=== PATIENT | male | born 1960 ===

== ENCOUNTER 2018-04-08 13:56 | Emergency (ER) | payer BC ==
[2018-04-08 14:07] VITALS: TEMP 97.5; O2SAT 98
[2018-04-08] MEDS ORDERED: Lidocaine Hydrochloride 5 ML INJ ONE (14:42)
[2018-04-08] MEDS ORDERED: Lidocaine 2% MPF (5 ml) Inj ONE (15:21)
[2018-04-08] MEDS ORDERED: Tdap Vaccine 0.5 ml Vial (10-64 yrs) IM ONE ×2 (16:31→16:39)
--- NOTE | 2018-04-08 16:31 | C.PDOC ---
History Of Present Illness 57 year old male, otherwise well, comes in to ED after dropping a weight plate on his 5th digit of the right hand, sustaining a crush injury. He presents with pain that is 8/10, nonradiating, throbbing in nature, bleeding, and macerated tissue. Patient has no other complaints. Time Seen by Provider: 04/08/18 14:33 Chief Complaint (Nursing): Abnormal Skin Integrity History Per: Patient History/Exam Limitations: no limitations Onset/Duration Of Symptoms: Hrs Current Symptoms Are (Timing): Still Present Past Medical History Reviewed: Historical Data, Nursing Documentation, Vital Signs Vital Signs: Last Vital Signs Temp 97.5 F L 04/08/18 14:05 Pulse 80 04/08/18 14:05 Resp 18 04/08/18 14:05 BP 121/73 04/08/18 14:05 Pulse Ox 98 04/08/18 14:05 Family History: States: No Known Family Hx - Social History Hx Alcohol Use: No Hx Substance Use: No Review Of Systems Except As Marked, All Systems Reviewed And Found Negative. Constitutional: Negative for: Fever, Chills Gastrointestinal: Negative for: Nausea, Vomiting Musculoskeletal: Positive for: Other (Right 5th digit laceration) Neurological: Negative for: Headache Physical Exam - Physical Exam Appears: Non-toxic, No Acute Distress Skin: Warm, Dry Head: Atraumatic, Normacephalic Eye(s): bilateral: Normal Inspection Oral Mucosa: Moist Neck: Supple Extremity: Other (Right 5th digit has a burst opening that is semicircular around the distal tip of the digit with dangling macerated tissue, bleeding is contained) Neurological/Psych: Oriented x3, Normal Speech ED Course And Treatment O2 Sat by Pulse Oximetry: 98 (RA) Pulse Ox Interpretation: Normal - Other Rad Hand XR X-Ray: Read By Radiologist Interpretation: FINDINGS: BONES: Limited fracture related to the tuft of the distal phalanx right small finger. Bandage obscures fine bone and soft-tissue detail at the right small finger. JOINTS: No apparent subluxation or dislocation throughout the right hand. SOFT TISSUES: Normal. OTHER FINDINGS: None. IMPRESSION: Limited fracture tuft distal phalanx right small finger. No dislocation or subluxation. Procedure: Wound Repair - Consent Obtained Consent obtained: Verbal - Performed by Performed by: Attending Physician - Indications Indication(s):: Laceration - Location Location:: Right, Hand Finger:: Little Shape:: Linear (from medial aspect to lateral aspect of the digit involving the side of the nail bed) Dimensions Length cm: 2 - Anesthetic Technique Local/Regional Anesthetic:: Lidocaine 1% (no epi) - Debris Debris:: Other (Some tissue is destroyed and needed to be debrided) - Irrigated Irrigated with ml of normal saline: Soaked and irrigated with betadine and saline - Wound repair method Sutures:: # (3), Size (4-0) - Patient tolerated procedure Patient Tolerated Procedure:: Well Medical Decision Making Medical Decision Making: Plan: --Adacel --Ancef IM --Right Hand XR XR showed tuft fracture. Right 5th digit was wrapped with vaseline gauze. Ins tructed patient to come back in 24 hours for a wound check and advised to follow up with specialist. Disposition Counseled Patient/Family Regarding: Studies Performed, Diagnosis, Need For Followup, Rx Given - Disposition Referrals: José Nunes MD [Staff Provider] - Disposition: HOME/ ROUTINE Disposition Time: 16:26 Condition: STABLE Additional Instructions: Mantenga calderon mano limpia y seca jay las prximas 24 horas. Por favor regrese al departamento de emergencias para renan evaluacin de la herida en 2 zaldivar. Tambin ignacio un seguimiento con el Dr. Nunes, el especialista en lizy. Hgale saber a calderon oficina que lo atendieron en el departamento de emergencias del [facility]. Regrese al Departamento de Emergencias si tiene mucho dolor o enrojecimiento en la webbo. Prescriptions: Cephalexin [Keflex] 500 mg PO TID #40 capsule Ibuprofen [Motrin] 600 mg PO TID #15 tab Instructions: Crush Injury (DC) Forms: Gen Discharge Inst Greek, [facility] (Greek), Work Excuse - POA Present On Arrival: None - Clinical Impression Clinical Impression: Crush injury to finger - Scribe Statement The provider has reviewed the documentation as recorded by the Scribe Christy Macias Provider Attestation: All medical record entries made by the Scribe were at my direction and personally dictated by me. I have reviewed the chart and agree that the record accurately reflects my personal performance of the history, physical exam, medical decision making, and the department course for this patient. I have also personally directed, reviewed, and agree with the discharge instructions and disposition.
[2018-04-08 16:51] VITALS: BP 122/85; PULSE 85; RESP 16
--- NOTE | 2018-04-08 17:09 | RAD ---
PROCEDURE: Right Hand Radiographs. HISTORY: crush injury COMPARISON: None. FINDINGS: BONES: Limited fracture related to the tuft of the distal phalanx right small finger. Bandage obscures fine bone and soft-tissue detail at the right small finger. JOINTS: No apparent subluxation or dislocation throughout the right hand. SOFT TISSUES: Normal. OTHER FINDINGS: None. IMPRESSION: Limited fracture tuft distal phalanx right small finger. No dislocation or subluxation.
== END 2018-04-08 16:50 | disposition home or self-care (01) ==
LOC: C.ER 13:56
DX: S67.196A Crushing injury of right little finger, initial encounter (principal); W23.0XXA Caught, crushed, jammed, or pinched between moving objects, initial encounter; Z23 Encounter for immunization
CPT/HCPCS: 12001; 73130; 90471; 90715; 96372; 99284; J0690